=== PATIENT | male | born 1985 | race Hispanic/Latino ===

== ENCOUNTER 2019-03-06 22:52 | Emergency (ER) | payer OTHER ==
[2019-03-06] MEDS ORDERED: IBUPROFEN 600 MG TABLET ONE (23:11)
[2019-03-06 23:21] LABS: RAPID GROUP A STREP NEGATIVE (NEGATIVE)
== END 2019-03-07 00:40 | disposition home or self-care (01) ==
LOC: EDH 22:52
DX: J11.1 Influenza due to unidentified influenza virus with other respiratory manifestations (principal)
CPT/HCPCS: 87804; 87880